=== PATIENT | female | born 1965 | race Two or more races ===

== ENCOUNTER 2023-08-19 10:50 | Emergency (ER) | payer OTHER ==
[~2023-08-19] VITALS: Ht 154.9 cm; Wt 68.2 kg
[2023-08-19] MEDS ORDERED: IBUP-1456 PO (12:03)
[2023-08-19 12:16] VITALS: BP 142/68; PULSE 62; RESP 16; TEMP 98.1; O2SAT 98
== END 2023-08-19 12:21 | disposition home or self-care (01) ==
LOC: ER 10:50
DX: S82.034A Nondisplaced transverse fracture of right patella, initial encounter for closed fracture (principal); W18.09XA Striking against other object with subsequent fall, initial encounter; Y93.89 Activity, other specified; Y92.89 Other specified places as the place of occurrence of the external cause; Y99.8 Other external cause status
CPT/HCPCS: 29505; 73562